=== PATIENT | male | born 1970 | race Caucasian/White ===

== ENCOUNTER 2019-03-22 08:00 | Emergency (ER) | payer OTHER ==
[2019-03-22] MEDS ORDERED: KETOROLAC TROMETHAMINE INJ/PF 30 MG/1 ML SDV IV ONE (09:18)
[2019-03-22] MEDS ORDERED: MORPHINE SULFATE 10 MG/ML INJ IV ONE (09:18)
--- NOTE | 2019-03-22 09:20 | ER Document Report ---
ED General - General Chief Complaint: Abdominal Pain Stated Complaint: ABDOMINAL PAIN Time Seen by Provider: 03/22/19 08:43 Primary Care Provider: JACKY PANIAGUA PA-C [Primary Care Provider] - Follow up as needed TRAVEL OUTSIDE OF THE [place] IN LAST 30 DAYS: No - HPI Notes: Patient presents with sudden onset of right flank pain. He states it radiates into his right testicle. Nothing makes it better or worse. It is severe in intensity. It is constant. He states it is made him sweaty. He denies nausea or vomiting. No previous history of similar pains. He denies previous history of kidney stones. No known trauma fever sweats or chills. - Related Data Allergies/Adverse Reactions: No Known Allergies Allergy (Verified 03/22/19 08:01) Past Medical History - Social History Smoking Status: Never Smoker Frequency of alcohol use: None Drug Abuse: None Family History: Reviewed & Not Pertinent Review of Systems - Review of Systems Constitutional: denies: Chills, Fever Cardiovascular: denies: Chest pain, Palpitations Respiratory: denies: Cough, Short of breath -: Yes All other systems reviewed and negative Physical Exam - Vital signs Vitals: Temp Pulse Resp BP Pulse Ox 97.8 F 61 16 189/95 H 96 03/22/19 08:05 03/22/19 08:05 03/22/19 08:05 03/22/19 08:05 03/22/19 08:05 Interpretation: Normal - General General appearance: Appears well, Alert - HEENT Head: Normocephalic, Atraumatic Eyes: Normal Pupils: PERRL - Respiratory Respiratory status: No respiratory distress Chest status: Nontender Breath sounds: Normal Chest palpation: Normal - Cardiovascular Rhythm: Regular Heart sounds: Normal auscultation Murmur: No - Abdominal Inspection: Normal Distension: No distension Bowel sounds: Normal Tenderness: Nontender Organomegaly: No organomegaly - Back Back: Normal, Nontender - Extremities General upper extremity: Normal inspection, Nontender, Normal color, Normal ROM, Normal temperature General lower extremity: Normal inspection, Nontender, Normal color, Normal ROM, Normal temperature, Normal weight bearing. No: Alem's sign - Neurological Neuro grossly intact: Yes Cognition: Normal Orientation: AAOx4 [place] Coma Scale Eye Opening: Spontaneous [place] Coma Scale Verbal: Oriented [place] Coma Scale Motor: Obeys Commands [place] Coma Scale Total: 15 Speech: Normal Motor strength normal: LUE, RUE, LLE, RLE Sensory: Normal - Psychological Associated symptoms: Normal affect, Normal mood - Skin Skin Temperature: Warm Skin Moisture: Dry Skin Color: Normal Course - Re-evaluation Re-evalutation: 03/22/19 11:11 Patient is now pain-free. He states he feels much better. CT scan shows a 2 mm stone on the right. No evidence of infection. - Vital Signs Vital signs: Temp Pulse Resp BP Pulse Ox 97.8 F 61 16 189/95 H 96 03/22/19 08:05 03/22/19 08:05 03/22/19 08:05 03/22/19 08:05 03/22/19 08:05 - Laboratory Laboratory results interpreted by me: 03/22/19 09:43 Urine Blood LARGE H Laboratory 03/22/19 09:43 Urine Color YELLOW Urine Appearance CLEAR Urine pH 5.0 Ur Specific [place] 1.012 Urine Protein NEGATIVE Urine Glucose (UA) NEGATIVE Urine Ketones NEGATIVE Urine Blood LARGE H Urine Nitrite NEGATIVE Urine Bilirubin NEGATIVE Urine Urobilinogen NEGATIVE Ur Leukocyte Esterase NEGATIVE Urine RBC 30-50 Urine WBC 1-5 Ur Squamous Epith Cells FEW Urine Mucus 2+ Urine Ascorbic Acid NEGATIVE - Diagnostic Test Radiology results interpreted by me: 03/22/19 11:11 Abdomen/Pelvis CT 03/22/19 09:15 IMPRESSION: 2 mm stone distal right ureter at the UVJ causing very mild right hydronephrosis and hydroureter, very mild perinephric stranding 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 No left-sided urinary stones are identified. Fatty infiltration liver Discharge - Discharge Clinical Impression: Right ureteral stone Condition: Stable Disposition: HOME, SELF-CARE Instructions: Kidney Stone ([facility]) Additional Instructions: If you have any further problems with the kidney stone please call Dr. De La Cruz urologist. His number is [phone] Prescriptions: Tramadol HCl [Ultram] 50 mg PO Q6 3 Days #10 tablet Referrals: JACKY PANIAGUA PA-C [Primary Care Provider] - Follow up as needed
[2019-03-22 10:05] LABS: APPEARANCE,URINE CLEAR; BILIRUBIN,URINE NEGATIVE (NEGATIVE); COLOR,URINE YELLOW; GLUCOSE, URINE NEGATIVE (NEGATIVE); KETONES,URINE NEGATIVE (NEGATIVE); LEUKOCYTE ESTERASE,URINE NEGATIVE (NEGATIVE); NITRITE,URINE NEGATIVE (NEGATIVE); PROTEIN,URINE NEGATIVE (NEGATIVE); URINE SPECIFIC GRAVITY 1.012; UROBILINOGEN,URINE NEGATIVE mg/dL (<2.0)
[2019-03-22 10:10] LABS: ADD MANUAL MICROSCOPIC YES
[2019-03-22 10:11] LABS: RBC,URINE 30-50 /HPF
--- NOTE | 2019-03-22 10:58 | RADIOLOGY REPORT (SQ) ---
EXAM DESCRIPTION: CT ABD/PELVIS NO ORAL OR IV COMPLETED DATE/TIME: 03/22/2019 10:38 am REASON FOR STUDY: right flank pain COMPARISON: None. TECHNIQUE: CT scan of the abdomen and pelvis performed without intravenous or oral contrast. Images reviewed with lung, soft tissue, and bone windows. Reconstructed coronal and sagittal MPR images revi ewed. All images stored on PACS. All CT scanners at this facility use dose modulation, iterative reconstruction, and/or weight based d osing when appropriate to reduce radiation dose to as low as reasonably achievable (ALARA). [facility]: Dose Right [facility]: CareDose [facility]: Dose Right [facility]: Teradose 4D [facility]: Smart [employer] RADIATION DOSE: CT Rad equipment meets quality standard of care and radiation dose reduction techniq ues were employed. CTDIvol: 19.6 mGy. DLP: 1143 mGy-cm.mGy. LIMITATIONS: None. FINDINGS: A 2 mm calculus is present in the distal right ureter at the ureterovesical junction, best shown on axial image 82 and coronal image 51. This causes mild right hydronephrosis and hydroureter , and mild retroperitoneal stranding around the right kidney and ureter. No other right-sided renal or ureteral calculi. No right renal masses or cysts. LOWER CHEST: No significant findings. No nodules or infiltrates. NON-CONTRASTED LIVER, SPLEEN, ADRENALS: Fatty infiltration of liver sparing the gallbladder fossa. S pleen and adrenal glands are unremarkable PANCREAS: No masses. No peripancreatic inflammatory changes. GALLBLADDER: No identified stones by CT criteria. No inflammatory changes to suggest cholecystitis. RIGHT KIDNEY AND URETER: As above LEFT KIDNEY AND URETER: No suspicious masses. Assessment limited by lack of IV contrast. No signifi cant calcifications. Water density cystic structures are present at the left renal hilum, probably representing parapelvic cysts. A congenital UPJ obstruction is possible. AORTA AND RETROPERITONEUM: No aneurysm. No retroperitoneal masses or adenopathy. BOWEL AND PERITONEAL CAVITY: No obvious masses or inflammatory changes. No free fluid. APPENDIX: Normal. PELVIS, BLADDER, AND ABDOMINAL WALL:No abnormal masses. No free fluid. Bladder normal. BONES: No significant findings. OTHER: No other significant finding. 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 No left-sided urinary stones are identifie d. Fatty infiltration liver COMMENT: Quality ID # [id number]: Final reports with documentation of one or more dose reduction techniques (e.g., Automated exposure control, adjustment of the mA and/or kV according to patient size, use of iterative reconstruction technique) TECHNICAL DOCUMENTATION: JOB ID: [id number] [employer]- All Rights Reserved Reading location - IP/workstation name: [email or web address]
[2019-03-22 11:38] VITALS: BP 162/91
== END 2019-03-22 11:38 | disposition home or self-care (01) ==
LOC: ER 08:00
DX: N20.1 Calculus of ureter (principal); R10.9 Unspecified abdominal pain; N50.811 Right testicular pain
CPT/HCPCS: 99284; 96374; 96375; 81001; 74176; J1885; J2270